=== PATIENT | female | born 1980 | race African-American/Black ===

== ENCOUNTER 2021-12-08 04:40 | Emergency (ER) | payer MEDICAID ==
[~2021-12-08] VITALS: Ht 162.6 cm; Wt 66.0 kg
[2021-12-08 05:01] VITALS: BP 129/51
[2021-12-08] MEDS ORDERED: PREDNISONE 20MG TABLET PO ONE (05:30)
[2021-12-08] MEDS ORDERED: DIPHENHYDRAMINE 50MG CAPSULE PO ONE (05:30)
[2021-12-08] MEDS ORDERED: FAMOTIDINE 20MG TABLET PO ONE (05:30)
[2021-12-08] MEDS ORDERED: P50 MT (05:41)
[2021-12-08] MEDS ORDERED: FAMO-135 MT (05:41)
[2021-12-08] MEDS ORDERED: DIPH25CA83 MT (05:41)
== END 2021-12-08 06:03 | disposition home or self-care (01) ==
LOC: ER 04:40
DX: L50.9 Urticaria, unspecified (principal); F15.10 Other stimulant abuse, uncomplicated
CPT/HCPCS: 99284; J7512; Q0163

== ENCOUNTER 2022-01-06 11:02 | Emergency (ER) | payer MEDICAID ==
[~2022-01-06] VITALS: Ht 162.6 cm; Wt 68.0 kg
[~2022-01-06 11:02] MED LIST: DIPH25CA83 MT; FAMO-135 MT; P50 MT
[2022-01-06] MEDS ORDERED: PRED10TA MT (11:36)
[2022-01-06 12:22] VITALS: BP 111/86
== END 2022-01-06 12:24 | disposition home or self-care (01) ==
LOC: ER 11:14
DX: L23.4 Allergic contact dermatitis due to dyes (principal)
CPT/HCPCS: 99282; 99283

== ENCOUNTER 2022-01-28 11:30 | Emergency (ER) | payer MEDICAID ==
[~2022-01-28] VITALS: Ht 162.6 cm; Wt 65.0 kg
[~2022-01-28 11:30] MED LIST changes: +PRED10TA MT
[2022-01-28 11:36] VITALS: BP 123/45
[2022-01-28] MEDS ORDERED: PREDNISONE 20MG TABLET PO ONE (12:15)
[2022-01-28] MEDS ORDERED: FAMOTIDINE 20MG TABLET PO ONE (12:15)
[2022-01-28] MEDS ORDERED: HYDROXYZINE 25MG TABLET PO ONE (12:15)
[2022-01-28] MEDS ORDERED: FAMO-135 MT (13:39)
[2022-01-28] MEDS ORDERED: P50 MT (13:39)
[2022-01-28] MEDS ORDERED: HYDR-3735 MT (13:39)
== END 2022-01-28 13:48 | disposition home or self-care (01) ==
LOC: ER 11:30
DX: R21 Rash and other nonspecific skin eruption (principal); F15.10 Other stimulant abuse, uncomplicated; F11.20 Opioid dependence, uncomplicated; Z79.899 Other long term (current) drug therapy
CPT/HCPCS: 99284; J7512

== ENCOUNTER 2022-05-13 00:35 | Emergency (ER) | payer MEDICAID ==
[~2022-05-13] VITALS: Ht 162.6 cm; Wt 69.3 kg
[~2022-05-13 00:35] MED LIST changes: +HYDR-3735 MT
[2022-05-13 00:40] VITALS: BP 119/80
[2022-05-13 03:27] LABS: CLARITY URINE CLOUDY (CLEAR); COLOR URINE YELLOW (YELLOW); KETONES URINE TRACE (NEGATIVE); LEUKOCYTE ESTERASE URINE 3+ (NEGATIVE); NITRITE URINE NEGATIVE (NEGATIVE); OCCULT BLOOD URINE 2+ (NEGATIVE); PROTEIN URINE 2+ (NEGATIVE); SPECIFIC GRAVITY URINE 1.031 (1.005-1.030)
[2022-05-13] MEDS ORDERED: CEPH500C2 MT (07:19)
[2022-05-13] MEDS ORDERED: PERM60CR4 TP (07:19)
== END 2022-05-13 07:34 | disposition home or self-care (01) ==
LOC: ER 01:12
DX: N39.0 Urinary tract infection, site not specified (principal); R21 Rash and other nonspecific skin eruption; F15.10 Other stimulant abuse, uncomplicated; Z79.899 Other long term (current) drug therapy
CPT/HCPCS: 81003; 81025; 87077; 87186; 99283

== ENCOUNTER 2022-08-03 01:14 | Emergency (ER) | payer MEDICAID ==
[~2022-08-03] VITALS: Ht 162.6 cm; Wt 66.4 kg
[~2022-08-03 01:14] MED LIST changes: +CEPH500C2 MT; +PERM60CR4 TP
[2022-08-03 01:27] VITALS: BP 115/53
[2022-08-03] MEDS ORDERED: P50 MT (02:12)
[2022-08-03] MEDS ORDERED: PREDNISONE 20MG TABLET PO ONE (02:15)
== END 2022-08-03 02:26 | disposition home or self-care (01) ==
LOC: ER 01:14
DX: I88.9 Nonspecific lymphadenitis, unspecified (principal); F15.10 Other stimulant abuse, uncomplicated; F11.129 Opioid abuse with intoxication, unspecified; Z79.899 Other long term (current) drug therapy
CPT/HCPCS: 99283; J7512

== ENCOUNTER 2022-09-23 04:07 | Emergency (ER) | payer MEDICAID ==
[~2022-09-23] VITALS: Ht 165.1 cm; Wt 71.3 kg
[2022-09-23 04:32] VITALS: BP 115/72
[2022-09-23] MEDS ORDERED: HYDR-459 MT (05:11)
[2022-09-23] MEDS ORDERED: MINE50OI TP (05:11)
== END 2022-09-23 05:29 | disposition home or self-care (01) ==
LOC: ER 04:07
DX: R21 Rash and other nonspecific skin eruption (principal); F15.10 Other stimulant abuse, uncomplicated; Z79.899 Other long term (current) drug therapy
CPT/HCPCS: 99283

== ENCOUNTER 2023-03-31 05:21 | Emergency (ER) | payer MEDICAID ==
[~2023-03-31] VITALS: Ht 162.6 cm; Wt 61.0 kg
[~2023-03-31 05:21] MED LIST changes: +HYDR-459 MT; +MINE50OI TP
[2023-03-31] MEDS ORDERED: AMOX1TAB16 MT (06:22)
[2023-03-31] MEDS ORDERED: MUPI15CR11 TP (06:22)
[2023-03-31 06:48] VITALS: BP 118/84
== END 2023-03-31 06:51 | disposition home or self-care (01) ==
LOC: ER 05:21
DX: L03.031 Cellulitis of right toe (principal); F11.90 Opioid use, unspecified, uncomplicated; F15.90 Other stimulant use, unspecified, uncomplicated
CPT/HCPCS: 99283

== ENCOUNTER 2023-07-21 22:39 | Emergency (ER) | payer MEDICAID ==
[~2023-07-21 22:39] MED LIST changes: +AMOX1TAB16 MT; +MUPI15CR11 TP
[2023-07-21 22:41] VITALS: PULSE 110; RESP 18
== END 2023-07-22 00:40 | disposition left against medical advice (07) ==
LOC: ER 22:39
DX: Z53.21 Procedure and treatment not carried out due to patient leaving prior to being seen by health care provider (principal)

== ENCOUNTER 2023-09-18 23:50 | Emergency (ER) | payer MEDICAID ==
[~2023-09-18] VITALS: Ht 162.6 cm; Wt 64.4 kg
[2023-09-19 00:14] VITALS: TEMP 97.8; O2SAT 100
[2023-09-19] MEDS ORDERED: AMOX-494 MT (00:56)
[2023-09-19] MEDS ORDERED: IBUP-2029 MT (00:56)
[2023-09-19] MEDS ORDERED: T3 PO (00:56)
[2023-09-19 01:21] VITALS: BP 125/68; PULSE 76; RESP 17
== END 2023-09-19 01:22 | disposition home or self-care (01) ==
LOC: ER 23:50
DX: K08.89 Other specified disorders of teeth and supporting structures (principal); F15.10 Other stimulant abuse, uncomplicated; F11.10 Opioid abuse, uncomplicated
CPT/HCPCS: 99283

== ENCOUNTER 2023-09-26 20:01 | Emergency (ER) | payer MEDICAID ==
[~2023-09-26] VITALS: Ht 162.6 cm; Wt 63.2 kg
[~2023-09-26 20:01] MED LIST changes: +AMOX-494 MT; +IBUP-2029 MT; +T3 PO
[2023-09-26 20:11] VITALS: O2SAT 100
[2023-09-26] MEDS ORDERED: DIPHENHYDRAMINE 25MG CAPSULE PO ONE (21:30)
[2023-09-26] MEDS ORDERED: PREDNISONE 20MG TABLET PO ONE (21:30)
[2023-09-26] MEDS ORDERED: FAMOTIDINE 20MG TABLET PO ONE (21:30)
[2023-09-26] MEDS ORDERED: FAMO20TA8 MT (21:32)
[2023-09-26] MEDS ORDERED: P50 MT (21:32)
[2023-09-26] MEDS ORDERED: DIPH25CA83 MT (21:32)
[2023-09-26] MEDS ORDERED: DIPHENHYDRAMINE 25MG CAPSULE PO NR (23:15)
[2023-09-27 01:38] VITALS: BP 116/65; PULSE 78; RESP 20; TEMP 98.2
== END 2023-09-26 22:37 | disposition home or self-care (01) ==
LOC: ER 20:01
DX: R21 Rash and other nonspecific skin eruption (principal); F15.10 Other stimulant abuse, uncomplicated; Z79.899 Other long term (current) drug therapy
CPT/HCPCS: 99283; 81025; Q0163; J7512

== ENCOUNTER 2023-10-17 04:40 | Emergency (ER) | payer MEDICAID ==
[~2023-10-17] VITALS: Ht 162.6 cm; Wt 59.0 kg
[~2023-10-17 04:40] MED LIST changes: +FAMO20TA8 MT
[2023-10-17 04:59] VITALS: BP 113/46; PULSE 88; RESP 16; TEMP 98.3; O2SAT 98
[2023-10-17 06:29] LABS: BASOPHILS % 1.1 % (0.0-2.0); EOSINOPHILS % 5.7 % (0.0-5.0); HEMATOCRIT. 24.7 % (36.0-48.0); HEMOGLOBIN. 7.3 g/dL (12.0-16.0); LYMPHOCYTES % 24.1 % (20.0-50.0); MEAN CORPUSCULAR HEMOGLOBIN 20.4 pg (28.0-32.0); MEAN CORPUSCULAR HGB CONC 29.5 g/dL (31.0-37.0); MEAN CORPUSCULAR VOLUME 69.2 fL (81.0-99.0); MEAN PLATELET VOLUME 7.6 fl (7.4-10.4); MONOCYTES % 7.3 % (2.0-8.0); NEUTROPHILS % 61.8 % (40.0-76.0); PLATELET 402 x1000/uL (130-400); RED BLOOD CELL COUNT 3.56 mill/uL (4.2-5.4); RED CELL DISTRIBUTION WIDTH 22.3 % (11.6-14.6); WHITE BLOOD COUNT 5.9 x1000/uL (4.5-11.0)
[2023-10-17 06:44] LABS: ADD RBC MORPHOLOGY YES; DIFFERENTIAL COMMENT 1
[2023-10-17 07:29] LABS: ALANINE AMINOTRANSFERASE 28 IU/L (10-49); ALBUMIN 4.3 g/dL (3.2-4.8); ASPARTATE AMINOTRANSFERASE 38 IU/L (<34); BILIRUBIN TOTAL 0.3 mg/dL (0.1-1.0); CARBON DIOXIDE 21 mEq/L (21-32); CHLORIDE 108 mEq/L (98-107); CREATININE 0.6 mg/dL (0.6-1.0); GLUCOSE 87 mg/dL (70-105); POTASSIUM 3.2 mEq/L (3.5-5.1); PROTEIN TOTAL 6.6 g/dL (6.0-8.3); SODIUM 142 mEq/L (136-145)
[2023-10-17 07:33] LABS: B-HCG QUANTITATIVE < 1 mIU/mL (<3); UREA NITROGEN BLOOD < 5 mg/dL (9-23)
[2023-10-17 10:20] LABS: PLATELET ESTIMATE NORMAL
[2023-10-17 10:21] LABS: ANISOCYTOSIS 3+; HYPOCHROMASIA 2+; MICROCYTOSIS 2+
== END 2023-10-17 09:03 | disposition left against medical advice (07) ==
LOC: ER 04:40
DX: R10.9 Unspecified abdominal pain (principal); Z53.21 Procedure and treatment not carried out due to patient leaving prior to being seen by health care provider
CPT/HCPCS: 36415; 80053; 84702; 85025; 86850; 86900; 99281